=== PATIENT | male | born 1970 | race Caucasian/White ===

== ENCOUNTER 2023-03-24 17:11 | Emergency (ER) | payer SELFPAY ==
[~2023-03-24] VITALS: Ht 182.9 cm; Wt 96.0 kg
[2023-03-24 17:22] VITALS: O2SAT 95
[2023-03-24] MEDS ORDERED: IBUPROFEN 600MG TABLET PO STA (17:40)
[2023-03-24] MEDS ORDERED: TOPUD MT (18:33)
[2023-03-24] MEDS ORDERED: CYCL10TA21 MT (18:33)
[2023-03-24 19:04] VITALS: BP 201/104; PULSE 92; RESP 18; TEMP 98.2
== END 2023-03-24 19:05 | disposition home or self-care (01) ==
LOC: ER 17:11
DX: S20.219A Contusion of unspecified front wall of thorax, initial encounter (principal); I10 Essential (primary) hypertension; V89.2XXA Person injured in unspecified motor-vehicle accident, traffic, initial encounter; Y93.89 Activity, other specified; Y92.89 Other specified places as the place of occurrence of the external cause; Y99.8 Other external cause status
CPT/HCPCS: 71045; 74018; 99284